=== PATIENT | male | born 2005 | race Two or more races ===

== ENCOUNTER 2023-01-12 14:50 | Emergency (ER) | payer OTHER ==
[~2023-01-12] VITALS: Ht 172.7 cm; Wt 71.2 kg
== END 2023-01-12 17:02 | disposition home or self-care (01) ==
LOC: ER 14:50 → EMR PED 15:00
PROVIDERS: Emergency Medicine
DX: J03.90 Acute tonsillitis, unspecified (principal); Z91.013 Allergy to seafood